=== PATIENT | female | born 1985 | race Two or more races ===

== ENCOUNTER → 2017-07-22 | Outpatient (CLI) | payer OTHER | END | disposition home or self-care (01) | LOC: CT 16:52 | PROC: BW241ZZ Computerized Tomography (CT Scan) of Chest and Abdomen using Low Osmolar Contrast (ICD-10-PCS; principal; 2017-07-22) | DX: R91.8 Other nonspecific abnormal finding of lung field (principal) | CPT/HCPCS: Q9967 ==

== ENCOUNTER → 2017-08-10 | Outpatient (CLI) | payer OTHER ==
[2017-08-10 08:57] LABS: BASOPHIL % 0.3 % (0-2); PLATELET COUNT 307 x10^3mcL (130-400); RED CELL DISTRIBUTION WIDTH 12.5 % (11.5-14.5)
[2017-08-10 09:30] LABS: ALBUMIN 3.5 g/dL (3.4-5.0); ALKALINE PHOSPHATASE 56 U/L (46-116); ALT/SGPT 150 U/L (14-59); AST/SGOT 72 U/L (15-37); BILIRUBIN TOTAL 0.29 mg/dL (0.20-1.00); CALCIUM 8.7 mg/dL (8.5-10.1); CARBON DIOXIDE 27.2 mmol/L (21-32); CHLORIDE SERUM 104 mmol/L (98-107); CHOLESTEROL 146 mg/dL (<200); CHOLESTEROL/HDL RATIO 4.1; CREATININE SERUM 0.6 mg/dL (0.6-1.0); GFR1 > 60 mL/min; GLUCOSE SERUM 153 mg/dL (74-106); HDL CHOLESTEROL 36 mg/dL (40-60); SODIUM SERUM 139 mmol/L (136-145); TOTAL PROTEIN, SERUM 8.2 g/dL (6.4-8.2)
[2017-08-10 09:31] LABS: TRIGLYCERIDES 444 mg/dL (<150)
[2017-08-10 09:48] LABS: T3 TOTAL 1.56 ng/mL
[2017-08-10 10:08] LABS: FREE T4 1.02 ng/dL (0.76-1.46); FREE THYROXINE INDEX 3.3 ug/dL (1.4-4.5); T4(THYROXINE) 9.7 ug/dL (4.7-13.3)
== END | disposition home or self-care (01) ==
LOC: LB 08:27
PROVIDERS: Family Medicine
DX: Z00.00 Encounter for general adult medical examination without abnormal findings (principal); Z13.1 Encounter for screening for diabetes mellitus; Z13.29 Encounter for screening for other suspected endocrine disorder; Z13.220 Encounter for screening for lipoid disorders; Z13.0 Encounter for screening for diseases of the blood and blood-forming organs and certain disorders involving the immune mechanism
CPT/HCPCS: 84439

== ENCOUNTER 2019-06-16 08:30 | Emergency (ER) | payer OTHER ==
[~2019-06-16] VITALS: Ht 162.6 cm; Wt 78.0 kg
[2019-06-16 08:35] VITALS: Ht 162.6 cm; Wt 78.0 kg
[2019-06-16 09:19] VITALS: BP 137/86
== END 2019-06-16 09:19 | disposition home or self-care (01) ==
LOC: ED 08:30
DX: H04.302 Unspecified dacryocystitis of left lacrimal passage (principal); Z88.0 Allergy status to penicillin; Z88.6 Allergy status to analgesic agent